=== PATIENT | male | born 1960 | race African-American/Black ===

== ENCOUNTER 2017-05-14 06:30 | Emergency (ER) | payer MEDICAID ==
[~2017-05-14] VITALS: Ht 180.3 cm; Wt 97.1 kg
[2017-05-14 06:40] VITALS: BP 162/100
[2017-05-14] MEDS ORDERED: LIDOCAINE VISCOUS 2% 15ML UD PO ONE (07:15)
[2017-05-14] MEDS ORDERED: InsuLIN REG 1unit/0.01ml Soln (100units/ml) SC ONE (07:15)
== END 2017-05-14 09:01 | disposition home or self-care (01) ==
LOC: ER 06:32
DX: J02.9 Acute pharyngitis, unspecified (principal); E11.9 Type 2 diabetes mellitus without complications; I10 Essential (primary) hypertension
CPT/HCPCS: 82962; 96372; 99283; J1815

== ENCOUNTER 2023-11-25 10:14 | Inpatient (IN) | payer MEDICARE, MEDICAID ==
[~2023-11-25] VITALS: Ht 180.3 cm; Wt 112.5 kg
[2023-11-25] MEDS: LIDOCAINE VISCOUS 2% 15ML UD PO ONE ×3 (11:46→14:44)
[2023-11-25 11:47] LABS: Basophils # (auto) 0.1 10 ^3/uL (0-0.2); Eosinophils # (auto) 0.2 10 ^3/uL (0-0.8); Eosinophils % (auto) 2.5 % (0.0-7.0); Hematocrit 43.9 % (41.0-53.0); Hemoglobin 14.7 g/dL (13.5-17.5); Lymphocytes # (auto) 2.6 10 ^3/uL (0.4-5.4); Lymphocytes % (auto) 31.9 % (10.0-50.0); Mean Corpuscular Hemoglobin 30.5 pg (28.0-32.0); Mean Corpuscular Hgb Conc. 33.6 g/dL (32.0-36.0); Mean Corpuscular Volume 90.8 fL (80.0-100.0); Monocytes # (auto) 0.9 10 ^3/uL (0-1.3); Monocytes % (auto) 10.7 % (0.0-12.0); Neutrophils # (auto) 4.4 10 ^3/uL (1.6-8.6); Neutrophils % (auto) 53.9 % (37.0-80.0); Nucleated Red Blood Cells % 0.3 %; Platelet Count (auto) 268 10^3/uL (140-450); Red Blood Cells 4.84 10^6/uL (4.5-5.90); White Blood Cell 8.2 10^3/uL (4.4-10.8)
[2023-11-25] MEDS: ASPirin 325 MG TAB PO ONE (11:47)
[2023-11-25] MEDS: IOHEXOL 300 MG/ML 100ML BOTTLE IJ ONE (11:53)
[2023-11-25 12:22] LABS: Alanine Aminotransferase 59 U/L (7-40); Albumin 4.3 g/dL (3.2-4.8); Alkaline Phosphatase 173 U/L (46-116); Anion Gap 8 (5-15); Aspartate Aminotransferase 18 U/L (13-40); BUN/Creatinine Ratio 8.8 (10.0-20.0); Bilirubin, Total 1.2 mg/dL (0.2-1.0); Blood Urea Nitrogen 13 mg/dL (9-23); Calcium 9.6 mg/dL (8.7-10.4); Carbon Dioxide 25 mmol/L (20-30); Chloride 103 mmol/L (98-107); Glucose 178 mg/dL (74-106); Magnesium 1.8 mg/dL (1.6-2.6); Sodium 136 mmol/L (136-145)
[2023-11-25 13:00] VITALS: O2SAT 96
[2023-11-25] MEDS: SODIUM CHLORIDE 0.9% 1,000 ML IV ONE (13:05)
[2023-11-25 16:10] VITALS: PULSE 85; RESP 13; O2SAT 97
[2023-11-25] MEDS ORDERED: DEXTROSE (50%) 50ML SYRG IV PRN (16:15)
[2023-11-25] MEDS ORDERED: ONDANSETRON HCL 4 MG/2 ML VIAL IV PRN (16:15)
[2023-11-25] MEDS ORDERED: DOCUSATE SOD 100 MG CAP PO PRN (16:15)
[2023-11-25] MEDS ORDERED: MORPHINE SULFATE INJ 2 MG/ml SYRG IV PRN (16:45)
[2023-11-25] MEDS ORDERED: NITROGLYCERIN 0.4 MG SL TAB SL PRN (16:45)
[2023-11-25] MEDS: SODIUM CHLORIDE 0.9% 1,000 ML IV SCH (17:16)
[2023-11-25] MEDS: ACCU-CHEK COMFORT CURVE STRIP VI SCH (17:16)
[2023-11-25] MEDS: InsuLIN REG 1unit/0.01ml Soln (100units/ml) SC SCH ×2 (17:34→22:44)
[2023-11-25 19:58] VITALS: O2SAT 96
[2023-11-25] MEDS ORDERED: METF-372 PO (22:37)
[2023-11-25] MEDS ORDERED: ASPI325T6 PO (22:37)
[2023-11-25] MEDS: IBUPROFEN 600 MG TAB PO PRN (22:37)
[2023-11-25] MEDS: ATORVASTATIN 20 MG TAB PO SCH (22:37)
[2023-11-25] MEDS ORDERED: GABA800T97 PO (22:37)
[2023-11-25] MEDS ORDERED: GLIP10TA9 PO (22:37)
[2023-11-25] MEDS ORDERED: LISI20TA56 PO (22:37)
[2023-11-25] MEDS ORDERED: INSLANTI SC (22:37)
[2023-11-25 22:49] VITALS: BP 162/84; PULSE 87; PULSE 89; RESP 20; TEMP 97.7; O2SAT 92
[2023-11-25] MEDS ORDERED: PANT40TA57 PO (23:26)
[2023-11-25] MEDS ORDERED: NAP500T PO (23:26)
[2023-11-25] MEDS ORDERED: CYCL-611 PO (23:26)
[2023-11-25] MEDS ORDERED: MELO7.5T7 PO (23:26)
[2023-11-25] MEDS ORDERED: SEMA2INJ3 SUBCUT (23:26)
[2023-11-25] MEDS ORDERED: MIRA50TA PO (23:26)
[2023-11-25] MEDS ORDERED: OFL50TS OT (23:26)
[2023-11-25] MEDS ORDERED: AMIT-256 PO (23:26)
[2023-11-25] MEDS ORDERED: OLOP0.1D14 OP (23:26)
[2023-11-25] MEDS ORDERED: LOS25T PO (23:26)
[2023-11-25] MEDS ORDERED: ATOR40TA52 PO (23:26)
[2023-11-26] VITALS (7 sets, daily range): BP systolic 123–140; BP diastolic 62–88; PULSE 81–89; RESP 18–20; TEMP 98.1–98.6; O2SAT 97–100
[2023-11-26 06:50] LABS: Alanine Aminotransferase 44 U/L (7-40); Alkaline Phosphatase 149 U/L (46-116); Calcium 9.4 mg/dL (8.7-10.4)
[2023-11-26 06:51] LABS: Anion Gap 10 (5-15); BUN/Creatinine Ratio 15.5 (10.0-20.0); Blood Urea Nitrogen 16 mg/dL (9-23); Carbon Dioxide 22 mmol/L (20-30); Chloride 106 mmol/L (98-107); Glucose 91 mg/dL (74-106); Potassium 4.2 mmol/L (3.5-5.1); Sodium 138 mmol/L (136-145)
[2023-11-26 06:52] LABS: Aspartate Aminotransferase 16 U/L (13-40); Bilirubin, Total 0.7 mg/dL (0.2-1.0); Total Protein 6.8 g/dL (5.7-8.2)
[2023-11-26 08:02] LABS: Basophils # (auto) 0.1 10 ^3/uL (0-0.2); Eosinophils # (auto) 0.2 10 ^3/uL (0-0.8); Lymphocytes # (auto) 3.1 10 ^3/uL (0.4-5.4)
[2023-11-26] MEDS: ASPirin 81 mg TAB PO SCH (09:12)
[2023-11-26 09:19] LABS: Basophils % (auto) 0.8 % (0.0-2.0); Eosinophils % (auto) 2.5 % (0.0-7.0); Hematocrit 41.5 % (41.0-53.0); Hemoglobin 13.8 g/dL (13.5-17.5); Lymphocytes % (auto) 36.7 % (10.0-50.0); Mean Corpuscular Hemoglobin 30.5 pg (28.0-32.0); Mean Corpuscular Hgb Conc. 33.3 g/dL (32.0-36.0); Mean Corpuscular Volume 91.4 fL (80.0-100.0); Monocytes # (auto) 0.9 10 ^3/uL (0-1.3); Monocytes % (auto) 10.5 % (0.0-12.0); Neutrophils # (auto) 4.2 10 ^3/uL (1.6-8.6); Neutrophils % (auto) 49.5 % (37.0-80.0); Nucleated Red Blood Cells % 0.2 %; Platelet Count (auto) 232 10^3/uL (140-450); Red Blood Cells 4.54 10^6/uL (4.5-5.90); Red Cell Distribution Width 13.8 % (11.8-14.3); White Blood Cell 8.6 10^3/uL (4.4-10.8)
[2023-11-26 12:16] LABS: Triglycerides 131 mg/dL (< 150)
[2023-11-26 12:17] LABS: LDL Cholesterol 104 mg/dL (< 100)
[2023-11-26 12:18] LABS: Cholesterol 167 mg/dL (< 200); HDL Cholesterol 35 mg/dL (40-59)
[2023-11-26 17:57] LABS: Urine Bacteria None Seen /hpf (None Seen)
[2023-11-26] MEDS ORDERED: ENOXAPARIN SOD 40 MG/0.4 ML SYRINGE SC ONE (18:00)
[2023-11-26 18:09] LABS: Urine Blood Negative /uL (Negative); Urine Clarity Clear (Clear); Urine Color Light-Yellow (Yellow); Urine Protein, UAD Negative (Negative); Urine Specific Gravity 1.012 (1.001-1.035); Urine Urobilinogen Normal (Negative); Urine WBC <1 /hpf (0 - 3); Urine pH 5.5 (5.0-9.0)
[2023-11-26 18:23] LABS: Amphetamine Screen, Urine Neg (NEGATIVE); Barbiturate Scree,Urine Neg (NEGATIVE); Benzodiazephine Screen, Urine Neg (NEGATIVE); Cannabinoid Screen, Urine Neg (NEGATIVE); Cocaine Screen, Urine Neg (NEGATIVE); Opiate Scree,Urine Neg (NEGATIVE); Phencyclidine Screen, Urine Neg (NEGATIVE)
[2023-11-26] MEDS: INSULIN LANTUS (GLARGINE) 1 /0.01ml (100units/ml) SC SCH (21:45)
[2023-11-27] VITALS (7 sets, daily range): BP systolic 120–164; BP diastolic 66–98; PULSE 76–88; RESP 18–19; TEMP 98.1–98.9; O2SAT 97–100
[2023-11-27 06:40] LABS: Basophils # (auto) 0.1 10 ^3/uL (0-0.2); Eosinophils # (auto) 0.2 10 ^3/uL (0-0.8); Eosinophils % (auto) 2.4 % (0.0-7.0); Hemoglobin 14.1 g/dL (13.5-17.5); Lymphocytes # (auto) 2.9 10 ^3/uL (0.4-5.4); Lymphocytes % (auto) 37.9 % (10.0-50.0); Mean Corpuscular Hemoglobin 31.2 pg (28.0-32.0); Mean Corpuscular Hgb Conc. 34.3 g/dL (32.0-36.0); Mean Corpuscular Volume 90.8 fL (80.0-100.0); Monocytes # (auto) 0.8 10 ^3/uL (0-1.3); Monocytes % (auto) 10.1 % (0.0-12.0); Neutrophils # (auto) 3.7 10 ^3/uL (1.6-8.6); Neutrophils % (auto) 48.6 % (37.0-80.0); Nucleated Red Blood Cells % 0.1 %; Platelet Count (auto) 236 10^3/uL (140-450); Red Blood Cells 4.52 10^6/uL (4.5-5.90); Red Cell Distribution Width 13.7 % (11.8-14.3); White Blood Cell 7.6 10^3/uL (4.4-10.8)
[2023-11-27 07:41] LABS: Chloride 106 mmol/L (98-107); Potassium 4.5 mmol/L (3.5-5.1); Sodium 140 mmol/L (136-145)
[2023-11-27 07:42] LABS: Anion Gap 7 (5-15); Carbon Dioxide 27 mmol/L (20-30)
[2023-11-27 07:43] LABS: Calcium 9.8 mg/dL (8.7-10.4)
[2023-11-27 07:47] LABS: BUN/Creatinine Ratio 13.3 (10.0-20.0); Blood Urea Nitrogen 13 mg/dL (9-23); Glucose 103 mg/dL (74-106)
[2023-11-27] MEDS: ENOXAPARIN SOD 40 MG/0.4 ML SYRINGE SC SCH (10:19)
[2023-11-27] MEDS: MAGNESIUM SULFATE 1GM/100ML 100 ML IV ONE (10:28)
[2023-12-04 12:46] LABS: RPR Non Reactive (Non Reactive)
== END 2023-11-27 16:12 | disposition home or self-care (01) | DRG 684 ==
LOC: ER 10:14 → TELE 16:45 → TELE-WESTW 21:54
PROVIDERS: ADMIT Internal Medicine Pulmonary Disease; ATTEND Emergency Medicine
DX: N17.0 Acute kidney failure with tubular necrosis (principal); E11.65 Type 2 diabetes mellitus with hyperglycemia; R55 Syncope and collapse; E78.5 Hyperlipidemia, unspecified; G40.909 Epilepsy, unspecified, not intractable, without status epilepticus; T43.015A Adverse effect of tricyclic antidepressants, initial encounter; I12.9 Hypertensive chronic kidney disease with stage 1 through stage 4 chronic kidney disease, or unspecified chronic kidney disease; C61 Malignant neoplasm of prostate; E11.22 Type 2 diabetes mellitus with diabetic chronic kidney disease; N18.2 Chronic kidney disease, stage 2 (mild); H81.10 Benign paroxysmal vertigo, unspecified ear; E11.40 Type 2 diabetes mellitus with diabetic neuropathy, unspecified; F41.9 Anxiety disorder, unspecified; E66.01 Morbid (severe) obesity due to excess calories; Z86.73 Personal history of transient ischemic attack (TIA), and cerebral infarction without residual deficits; Z85.46 Personal history of malignant neoplasm of prostate; Z90.79 Acquired absence of other genital organ(s); Z79.82 Long term (current) use of aspirin; Z68.35 Body mass index [BMI] 35.0-35.9, adult
CPT/HCPCS: 36415; 70450; 70491; 70551; 71045; 80048; 80053; 80061; 80307; 81001; 82607; 82962; 83036; 83735; 83880; 84443; 84484; 85025; 86592; 86803; 93005; 93306; 93886; G0378; J1815